=== PATIENT | female | born 1990 | race Caucasian/White ===

== ENCOUNTER 2017-10-12 09:25 | Emergency (ER) | payer MEDICAID, SELFPAY | END 2017-10-12 10:33 | disposition home or self-care (01) | PROVIDERS: Emergency Provider Nurse Practitioner Family; Family Provider Emergency Medicine; Visit Provider Nurse Practitioner Family | DX: J06.9 Acute upper respiratory infection, unspecified (principal) | CPT/HCPCS: 99201 ==

== ENCOUNTER 2017-11-07 00:14 | Emergency (ER) | payer MEDICAID, SELFPAY ==
[2017-11-07 00:21] VITALS: BP 135/88; PULSE 140; RESP 16; TEMP 37.4; O2SAT 97; BMI 28.1
[2017-11-07 00:39] LABS: Microscopic, Urine URINE MICROSCOPIC (MICROSCOPIC)
[2017-11-07 00:49] LABS: Appearance,Urine CLOUDY (Clear); Bilirubin,Urine Negative (Negative); Blood, Urine Negative (Negative); Color,Urine YELLOW (Yellow); Glucose,Urine (UA) Negative (Negative); Ketones,Urine TRACE (Negative); Leukocyte Esterase,Urine TRACE (Negative); Nitrate,Urine POSITIVE (Negative); Protein,Urine Negative (Negative); Specific Gravity, Urine 1.015 (1.005-1.030)
[2017-11-07 00:49] LABS: Basophils % 0.3 % (0.1-2.0); Eosinophils # 0.1 K/mm3 (0.0-0.4); Eosinophils % 1.6 % (0.1-12.0); Hematocrit 42.1 % (37.0-47.0); Hemoglobin 13.8 g/dL (12.2-16.2); Lymphocytes # 1.2 K/mm3 (0.7-4.5); Mean Corpuscular HGB Conc 32.8 g/dL (31.8-35.4); Mean Corpuscular Hemoglobin 28.4 pg (27.0-31.2); Mean Corpuscular Volume 86.7 fl (81-99); Mean Platelet Volume 8.6 fl (7.4-10.4); Monocytes # 0.4 K/mm3 (0.1-1.0); Monocytes % 5.7 % (1.7-9.3); Neutrophils # 5.7 K/mm3 (1.8-7.8); Neutrophils % 76.3 % (37.0-80.0); Platelet Count 209 K/mm3 (142-424); Red Blood Count 4.85 M/mm3 (4.20-5.40); Red Cell Distribution Width 13.1 % (11.5-17.5); White Blood Count 7.5 K/mm3 (4.8-10.8)
[2017-11-07 00:51] LABS: Urine Pregnancy, HCG Qual. Negative (Negative)
[2017-11-07 00:52] LABS: Bacteria,Urine 4+ /lpf
[2017-11-07 01:06] LABS: Alanine Aminotransferase 21 U/L (12-78); Albumin Level 4.5 gm/dL (3.4-5.0); Albumin/Globulin Ratio 1.2 (1.1-1.8); Alkaline Phosphatase 104 U/L (46-116); Anion Gap 10.5 mEq/L (5-15); Aspartate Amino Transferase 17 U/L (15-37); Bilirubin,Total 0.6 mg/dL (0.2-1.0); Blood Urea Nitrogen 8 mg/dL (7-18); Calcium 9.1 mg/dL (8.5-10.1); Carbon Dioxide 27 mmol/L (21.0-32.0); Chloride 103 mmol/L (98-107); Creatinine Clearance Estimated 111 mL/min (0-300); Creatinine,Serum 0.97 mg/dL (0.55-1.02); Estimated Glomerular Filt Rate 68 ml/min (>60); GFR (African American) 83 ML/MIN (>60); Globulin 3.8 gm/dl (1.3-3.2); Glucose 98 mg/dL (74-106); Potassium 3.5 mmoL/L (3.5-5.1); Sodium 137 mmol/L (136-145); Total Protein,Serum 8.3 gm/dL (6.4-8.2)
[2017-11-07 01:13] LABS: Strep Scrn Group A (Rapid) Negative (Negative)
--- NOTE | 2017-11-07 01:57 | HMH.EDHA ---
ED Disposition Clinical Impression: Headache Qualifiers: Headache type: unspecified Headache chronicity pattern: acute headache Intractability: not intractable Qualified Code(s): R51 - Headache Sinusitis Qualifiers: Sinusitis location: unspecified location Chronicity: acute Recurrence: not specified as recurrent Qualified Code(s): J01.90 - Acute sinusitis, unspecified Disposition: Home, Self-Care Condition on Discharge: Good Instructions: DI for Headache Additional Instructions: use meds and call pcp for follow up Prescriptions: cephALEXin [Keflex 500mg Cap] 500 mg PO TID #30 cap Referrals: Vladislav Lopez MD [Primary Care Provider] - - Critical Care Critical Care Time: No Attestation: On 11/07/17, the high probability of a clinically significant, sudden or life threatening deterioration of the following system(s) required my full and direct attention, intervention and personal management. The time I documented below is in addition to time spent performing reported procedures but includes the following listed in this critical care notation. Medical Decision Making - Medical Records Medical records reviewed: Yes: I reviewed the patient's medical records. Vital Signs: 11/07/17 00:21 Temperature 99.4 F Temperature Source Oral Pulse Rate [Brachial] 140 H Respiratory Rate 16 Blood Pressure [Right Arm] 135/88 Blood Pressure Mean [Right Arm] 103 Blood Pressure Source [Right Arm] Automatic Cuff Blood Pressure Position [Right Arm] Sitting 02 Sat by Pulse Oximetry 97 Oxygen Delivery Method Room Air - Lab Data Lab results reviewed: Yes: I reviewed the patient's lab results. Lab Results 11/07/17 00:37: Urine Color Yellow, Urine Appearance Cloudy, Urine pH 8.0, Ur Specific [place] 1.015, Urine Protein Negative, Urine Glucose (UA) Negative, Urine Ketones Trace, Urine Blood Negative, Urine Nitrate Positive, Urine Bilirubin Negative, Urine Urobilinogen 1.0, Ur Leukocyte Esterase Trace, Urine WBC 5-10, Ur Squamous Epith Cells 3-5, Urine Bacteria 4+ 11/07/17 00:37: Urine HCG, Qual Negative, Influenza Type A Ag Negative, Influenza Type B Ag Negative, Group A Strep Rapid Negative 11/07/17 00:40: WBC 7.5, RBC 4.85, Hgb 13.8, Hct 42.1, MCV 86.7, MCH 28.4, MCHC 32.8, RDW 13.1, Plt Count 209, MPV 8.6, Neut % (Auto) 76.3, Lymph % (Auto) 16.0, [place] % (Auto) 5.7, Eos % (Auto) 1.6, Baso % (Auto) 0.3, Neut # (Auto) 5.7, Lymph # (Auto) 1.2, [place] # (Auto) 0.4, Eos # (Auto) 0.1, Baso # (Auto) 0.0 11/07/17 00:40: Sodium 137, Potassium 3.5, Chloride 103, Carbon Dioxide 27, Anion Gap 10.5, BUN 8, Creatinine 0.97, Estimated Creat Clear 111, Estimated GFR 68, Est GFR ( Amer) 83, Glucose 98, Calcium 9.1, Total Bilirubin 0.6, AST 17, ALT 21, Alkaline Phosphatase 104, Total Protein 8.3 H, Albumin 4.5, Globulin 3.8 H, Albumin/Globulin Ratio 1.2 Result diagrams: 11/07/17 00:40 11/07/17 00:40 Orders (Tests/Meds): ED MEDICATIONS Discontinued Medications Generic Name Dose Route Start Last Admin Trade Name Hi PRN Reason Stop Dose Admin Acetaminophen 650 mg 11/07/17 01:11 11/07/17 01:13 Acetaminophen 325mg Tab PO 11/07/17 01:12 650 mg ONCE ONE Administration Ceftriaxone Sodium 1 gm/ 50 mls @ 100 mls/hr 11/07/17 02:06 11/07/17 02:28 Sodium Chloride IV 11/07/17 02:35 100 mls/hr ONCE ONE Administration Ketorolac Tromethamine 30 mg 11/07/17 02:05 11/07/17 02:28 Toradol 30mg/Ml Vial IV 11/07/17 02:06 30 mg ONCE ONE Administration Lactated Ringer's 0 ml 11/07/17 01:09 11/07/17 01:10 Lactated Ringer's 1000 Ml Bag IV 11/07/17 01:10 1,000 ml BOLUS ONE Administration ORDERS Category Date Time Status Strep Screen Confirmation Stat Micro 11/07/17 00:37 Received Urine Culture Stat Micro 11/07/17 00:37 Received - Wilder Inquiry Pt receiving controlled substance: No Headache HPI - General Chief Complaint: Headache Stated Complaint: Migraine,cough,aching,sore throat
--- NOTE | 2017-11-07 02:01 | ED_ITS ---
ED Disposition Clinical Impression: Headache Qualifiers: Headache type: unspecified Headache chronicity pattern: acute headache Intractability: not intractable Qualified Code(s): R51 - Headache Sinusitis Qualifiers: Sinusitis location: unspecified location Chronicity: acute Recurrence: not specified as recurrent Qualified Code(s): J01.90 - Acute sinusitis, unspecified Disposition: Home, Self-Care Condition on Discharge: Good Instructions: DI for Headache Additional Instructions: use meds and call pcp for follow up Prescriptions: cephALEXin [Keflex 500mg Cap] 500 mg PO TID #30 cap Referrals: Vladislav Lopez MD [Primary Care Provider] - - Critical Care Critical Care Time: No Attestation: On 11/07/17, the high probability of a clinically significant, sudden or life threatening deterioration of the following system(s) required my full and direct attention, intervention and personal management. The time I documented below is in addition to time spent performing reported procedures but includes the following listed in this critical care notation. Medical Decision Making - Medical Records Medical records reviewed: Yes: I reviewed the patient's medical records. Vital Signs: 11/07/17 00:21 Temperature 99.4 F Temperature Source Oral Pulse Rate [Brachial] 140 H Respiratory Rate 16 Blood Pressure [Right Arm] 135/88 Blood Pressure Mean [Right Arm] 103 Blood Pressure Source [Right Arm] Automatic Cuff Blood Pressure Position [Right Arm] Sitting 02 Sat by Pulse Oximetry 97 Oxygen Delivery Method Room Air - Lab Data Lab results reviewed: Yes: I reviewed the patient's lab results. Lab Results 11/07/17 00:37: Urine Color Yellow, Urine Appearance Cloudy, Urine pH 8.0, Ur Specific [place] 1.015, Urine Protein Negative, Urine Glucose (UA) Negative, Urine Ketones Trace, Urine Blood Negative, Urine Nitrate Positive, Urine Bilirubin Negative, Urine Urobilinogen 1.0, Ur Leukocyte Esterase Trace, Urine WBC 5-10, Ur Squamous Epith Cells 3-5, Urine Bacteria 4+ 11/07/17 00:37: Urine HCG, Qual Negative, Influenza Type A Ag Negative, Influenza Type B Ag Negative, Group A Strep Rapid Negative 11/07/17 00:40: WBC 7.5, RBC 4.85, Hgb 13.8, Hct 42.1, MCV 86.7, MCH 28.4, MCHC 32.8, RDW 13.1, Plt Count 209, MPV 8.6, Neut % (Auto) 76.3, Lymph % (Auto) 16.0 , [place] % (Auto) 5.7, Eos % (Auto) 1.6, Baso % (Auto) 0.3, Neut # (Auto) 5.7, Lymph # (Auto) 1.2, [place] # (Auto) 0.4, Eos # (Auto) 0.1, Baso # (Auto) 0.0 11/07/17 00:40: Sodium 137, Potassium 3.5, Chloride 103, Carbon Dioxide 27, Anion Gap 10.5, BUN 8, Creatinine 0.97, Estimated Creat Clear 111, Estimated GFR 68, Est GFR ( Amer) 83, Glucose 98, Calcium 9.1, Total Bilirubin 0.6 , AST 17, ALT 21, Alkaline Phosphatase 104, Total Protein 8.3 H, Albumin 4.5, Globulin 3.8 H, Albumin/Globulin Ratio 1.2 Result diagrams: 11/07/17 00:40 11/07/17 00:40 Orders (Tests/Meds): ED MEDICATIONS Discontinued Medications Generic Name Dose Route Start Last Admin Trade Name Raghuq PRN Reason Stop Dose Admin Acetaminophen 650 mg 11/07/17 01:11 11/07/17 01:13 Acetaminophen 325mg Tab PO 11/07/17 01:12 650 mg ONCE ONE Administration Ceftriaxone Sodium 1 gm/ 50 mls @ 100 mls/hr 11/07/17 02:06 11/07/17 02:28 Sodium Chloride IV 11/07/17 02:35 100 mls/hr ONCE ONE Administration Ketorolac Tromethamine 30 mg 11/07/17 02:05 11/07/17 02:28
== END 2017-11-07 03:11 | disposition home or self-care (01) ==
PROVIDERS: Emergency Provider Emergency Medicine; Family Provider Emergency Medicine; PCP Emergency Medicine
DX: R51 Headache (principal); J32.9 Chronic sinusitis, unspecified
CPT/HCPCS: 80053; 81001; 81025; 85025; 87086; 87088; 87275; 87276; 87430; 96365; 96374; 96375; 99283

== ENCOUNTER 2018-01-08 05:00 | Emergency (ER) | payer MEDICAID, SELFPAY ==
[2018-01-08 05:13] VITALS: BP 133/86; PULSE 100; RESP 16; TEMP 36.6; O2SAT 99; BMI 28.0
[2018-01-08 06:01] LABS: Microscopic, Urine URINE MICROSCOPIC (MICROSCOPIC)
[2018-01-08 06:04] LABS: Basophils % 0.3 % (0.1-2.0); Eosinophils # 0.1 K/mm3 (0.0-0.4); Eosinophils % 1.9 % (0.1-12.0); Hematocrit 41.5 % (37.0-47.0); Hemoglobin 13.9 g/dL (12.2-16.2); Lymphocytes # 2.3 K/mm3 (0.7-4.5); Lymphocytes % 34.6 K/mm3 (10-50); Mean Corpuscular HGB Conc 33.4 g/dL (31.8-35.4); Mean Corpuscular Hemoglobin 28.9 pg (27.0-31.2); Mean Corpuscular Volume 86.4 fl (81-99); Mean Platelet Volume 8.7 fl (7.4-10.4); Monocytes # 0.3 K/mm3 (0.1-1.0); Monocytes % 4.8 % (1.7-9.3); Neutrophils # 3.9 K/mm3 (1.8-7.8); Neutrophils % 58.4 % (37.0-80.0); Platelet Count 206 K/mm3 (142-424); Red Cell Distribution Width 12.9 % (11.5-17.5); White Blood Count 6.7 K/mm3 (4.8-10.8)
--- NOTE | 2018-01-08 06:08 | HMH.EDGENADL ---
ED Disposition Clinical Impression: Migraine Qualifiers: Migraine type: unspecified Status migrainosus presence: with status migrainosus Intractability: not intractable Qualified Code(s): G43.901 - Migraine, unspecified, not intractable, with status migrainosus Disposition: Home, Self-Care Condition on Discharge: Good Instructions: DI for Migraine Additional Instructions: Additional instructions for HEADACHE: See your physician as soon as possible for further evaluation. Return immediately if worsening headache, vomiting, problems with vision or speech, fever, numbness or weakness of the extremities, neck pain or stiffness. Referrals: Vladislav Lopez MD [Primary Care Provider] - Forms: Work/School Release - Critical Care Critical Care Time: No Attestation: On 01/08/18, the high probability of a clinically significant, sudden or life threatening deterioration of the following system(s) required my full and direct attention, intervention and personal management. The time I documented below is in addition to time spent performing reported procedures but includes the following listed in this critical care notation. Medical Decision Making - Wilder Inquiry Pt receiving controlled substance: No Vital Signs: 01/08/18 05:13 Temperature 97.9 F Temperature Source Oral Pulse Rate [Right Radial] 100 H Respiratory Rate 16 Blood Pressure [Right Arm] 133/86 Blood Pressure Mean [Right Arm] 101 Blood Pressure Source [Right Arm] Automatic Cuff Blood Pressure Position [Right Arm] Sitting 02 Sat by Pulse Oximetry 99 Oxygen Delivery Method Room Air - Lab Data Lab Results 01/08/18 05:39: WBC 6.7, RBC 4.80, Hgb 13.9, Hct 41.5, MCV 86.4, MCH 28.9, MCHC 33.4, RDW 12.9, Plt Count 206, MPV 8.7, Neut % (Auto) 58.4, Lymph % (Auto) 34.6, [place] % (Auto) 4.8, Eos % (Auto) 1.9, Baso % (Auto) 0.3, Neut # (Auto) 3.9, Lymph # (Auto) 2.3, [place] # (Auto) 0.3, Eos # (Auto) 0.1, Baso # (Auto) 0.0 Result diagrams: 01/08/18 05:39 Orders (Tests/Meds): ED MEDICATIONS Generic Name Dose Route Start Last Admin Trade Name Freq PRN Reason Stop Dose Admin Sodium Chloride 1,000 mls @ 999 mls/hr 01/08/18 05:30 01/08/18 05:40 Sod Chlor 0.9% 1000ml Bag IV 01/08/18 06:30 999 mls/hr .[id number] PRITI Administration Discontinued Medications Generic Name Dose Route Start Last Admin Trade Name Hi PRN Reason Stop Dose Admin Ketorolac Tromethamine 30 mg 01/08/18 05:26 01/08/18 05:39 Toradol 30mg/Ml Vial IV 01/08/18 05:27 30 mg ONCE ONE Administration Ondansetron HCl 4 mg 01/08/18 05:26 01/08/18 05:40 Zofran 4mg/2ml Vial IV 01/08/18 05:27 4 mg ONCE ONE Administration ORDERS Category Date Time Status Comprehensive Metabolic Panel Stat Lab 01/08/18 05:39 Received Urinalysis and Microscopic Stat Lab 01/08/18 05:20 Received Urine , HCG Qual Stat Lab 01/08/18 05:20 Received Medical Decision Narrative: Patient states she is markedly improved after Toradol, Zofran, and fluids. She wishes to be discharged. General Adult HPI - General Chief complaint: Headache Stated complaint: Migraine,Body aches Time Seen by Provider: 01/08/18 05:50 Mode of Arrival: Ambulatory Limitations: No Limitations Description of Symptoms (Recalled from ER Triage Doc. by RN): Pt. reports Migraine that started at 10pm yesterday - History of Present Illness HPI narrative: Patient complains of a migraine that began last evening. She took Excedrin Migraine at about 1 AM without relief. She says that she has a diagnosis of migraines, had been on Topamax in the past, but is not currently on any medicines for migraine. She has been to the emergency room several times for migraines and says usually an injection of Toradol helps. She has had nausea. Photophobia. - Related Data Home Medications Medication Instructions Recorded Confirmed Phentermine HCl 37.5 mg PO QDAY 11/07/17 01/08/18 Allergies
[2018-01-08 06:19] VITALS: BP 106/68; PULSE 82; RESP 20; TEMP 37; O2SAT 100
[2018-01-08 06:21] LABS: Appearance,Urine CLEAR (Clear); Bilirubin,Urine Negative (Negative); Blood, Urine Negative (Negative); Color,Urine YELLOW (Yellow); Glucose,Urine (UA) Negative (Negative); Ketones,Urine Negative (Negative); Leukocyte Esterase,Urine 1+ (Negative); Nitrate,Urine POSITIVE (Negative); Protein,Urine Negative (Negative); Specific Gravity, Urine 1.025 (1.005-1.030); Urobilinogen,Urine 0.2 EU/dl (0.2)
[2018-01-08 06:24] LABS: Urine Pregnancy, HCG Qual. Negative (Negative)
[2018-01-08 06:27] LABS: Alanine Aminotransferase 21 U/L (12-78); Alkaline Phosphatase 88 U/L (46-116); Aspartate Amino Transferase 14 U/L (15-37); Bilirubin,Total 0.9 mg/dL (0.2-1.0); Blood Urea Nitrogen 8 mg/dL (7-18); Carbon Dioxide 27 mmol/L (21.0-32.0); Chloride 105 mmol/L (98-107); Creatinine Clearance Estimated 123 mL/min (0-300); Creatinine,Serum 0.87 mg/dL (0.55-1.02); Estimated Glomerular Filt Rate 78 ml/min (>60); GFR (African American) 94 ML/MIN (>60); Glucose 109 mg/dL (74-106); Sodium 141 mmol/L (136-145)
[2018-01-08 06:50] LABS: Bacteria,Urine 3+ /lpf; Squamous Epithelial Cell,Urine TNTC #/hpf (0-5); WBC,Urine 20-50 #/hpf (0-3)
== END 2018-01-08 06:21 | disposition home or self-care (01) ==
PROVIDERS: Emergency Provider Emergency Medicine; Family Provider Emergency Medicine; PCP Emergency Medicine
DX: G43.901 Migraine, unspecified, not intractable, with status migrainosus (principal); Z90.49 Acquired absence of other specified parts of digestive tract
CPT/HCPCS: 80053; 81001; 81025; 85025; 87086; 96365; 96375; 99282; J2405

== ENCOUNTER 2018-01-13 14:35 | Emergency (ER) | payer MEDICAID, SELFPAY ==
[2018-01-13 14:45] VITALS: BP 127/79; PULSE 107; RESP 16; TEMP 37.1; O2SAT 95; BMI 28.0
--- NOTE | 2018-01-13 15:01 | HMH.EDDENT ---
ED Disposition Clinical Impression: Gingivitis Disposition: Home, Self-Care Condition on Discharge: Good Additional Instructions: Naproxen, dental balls infused with viscous Lidocaine: one ball to affected area every few hours; Rx Amoxicillin, contact Dr. Crabtree regarding ER visit. Prescriptions: Amoxicillin [Amoxicillin 500mg Cap] 500 mg PO TID #30 cap Naproxen [EC-Naprosyn] 500 mg PO BID PRN #20 tablet.dr LOWERY Reason: pain Referrals: Vladislav Lopez MD [Primary Care Provider] - Forms: Work/School Release - Critical Care Critical Care Time: No Attestation: On 01/13/18, the high probability of a clinically significant, sudden or life threatening deterioration of the following system(s) required my full and direct attention, intervention and personal management. The time I documented below is in addition to time spent performing reported procedures but includes the following listed in this critical care notation. Medical Decision Making - Wilder Inquiry Pt receiving controlled substance: No Vital Signs: 01/13/18 14:45 Temperature 98.8 F Temperature Source Temporal Artery Scan Pulse Rate [Right Radial] 107 H Respiratory Rate 16 Blood Pressure [Right Arm] 127/79 Blood Pressure Mean [Right Arm] 95 Blood Pressure Source [Right Arm] Automatic Cuff Blood Pressure Position [Right Arm] Sitting 02 Sat by Pulse Oximetry 95 Oxygen Delivery Method Room Air Orders (Tests/Meds): ED MEDICATIONS Discontinued Medications Generic Name Dose Route Start Last Admin Trade Name Freq PRN Reason Stop Dose Admin Ketorolac Tromethamine 60 mg 01/13/18 14:51 01/13/18 14:58 Toradol 60mg/2ml Vial IM 01/13/18 14:52 60 mg ONCE ONE Administration Lidocaine HCl 15 ml 01/13/18 14:52 01/13/18 14:57 Lidocaine 2% Viscous Solution 15ml Udc PO 01/13/18 14:53 15 ml ONCE ONE Administration Dental HPI - General Chief complaint: Dental/Oral Stated complaint: dental pain Time Seen by Provider: 01/13/18 15:01 Mode of Arrival: Ambulatory Source of Information: Patient Limitations: No Limitations Description of Symptoms (Recalled from ER Triage Doc. by RN): TOOTH PULLED SIX DAYS AGO. SEVERE DENTAL PAIN ON LEFT UPPER TOOTH/HOLE. - History of Present Illness HPI Narrative: Dental extraction per Dr. Crabtree six days ago; c/o pain, has f/u in five days with dentist. No fever or vomiting; not currently on any antibiotics; reports gingival swelling and pain the last few days. Location: Tooth # (11) Onset (ago): day(s) Duration: constant Severity: moderate Relieving factors: nothing Exacerbating factors: chewing Treatment prior to arrival: recent dentist visit - Related Data Home Medications Medication Instructions Recorded Confirmed Phentermine HCl 37.5 mg PO QDAY 11/07/17 01/13/18 Previous Rx's Medication Instructions Recorded Amoxicillin [Amoxicillin 500mg 500 mg PO TID #30 cap 01/13/18 Cap] Naproxen [EC-Naprosyn] 500 mg PO BID PRN #20 tablet. 01/13/18 Allergies Allergy/AdvReac Type Severity Reaction Status Date / Time No Known Allergies Allergy Verified 01/08/18 05:18 [facility] History I have reviewed the patient's past medical history: Yes - Social History Alcohol Intake: never - Psychiatric History Expresses thoughts of harming self/others: None Suicide Plan Description: No Plan ROS Obtained: Yes All systems reviewed & no additional complaints Physical Exam - General General appearance: alert, in no apparent distress - Head Head exam: atraumatic, normocephalic, normal inspection - Eye Eye exam: Present: normal appearance, PERRL, EOMI - ENT ENT exam: Present: normal oropharynx, other (gingival tenderness where #11 removed; no pus or odor; no erythema or swelling to cheek) - Neck Neck exam: Present: normal inspection, full ROM, trachea midline. Absent: meningismus, lymphadenopathy - Chest Chest inspection: Present: normal inspection, symmet
--- NOTE | 2018-01-13 15:07 | ED_ITS ---
ED Disposition Clinical Impression: Gingivitis Disposition: Home, Self-Care Condition on Discharge: Good Additional Instructions: Naproxen, dental balls infused with viscous Lidocaine: one ball to affected area every few hours; Rx Amoxicillin, contact Dr. Crabtree regarding ER visit. Prescriptions: Amoxicillin [Amoxicillin 500mg Cap] 500 mg PO TID #30 cap Naproxen [EC-Naprosyn] 500 mg PO BID PRN #20 tablet.dr LOWERY Reason: pain Referrals: Vladislav Lopez MD [Primary Care Provider] - Forms: Work/School Release - Critical Care Critical Care Time: No Attestation: On 01/13/18, the high probability of a clinically significant, sudden or life threatening deterioration of the following system(s) required my full and direct attention, intervention and personal management. The time I documented below is in addition to time spent performing reported procedures but includes the following listed in this critical care notation. Medical Decision Making - Wilder Inquiry Pt receiving controlled substance: No Vital Signs: 01/13/18 14:45 Temperature 98.8 F Temperature Source Temporal Artery Scan Pulse Rate [Right Radial] 107 H Respiratory Rate 16 Blood Pressure [Right Arm] 127/79 Blood Pressure Mean [Right Arm] 95 Blood Pressure Source [Right Arm] Automatic Cuff Blood Pressure Position [Right Arm] Sitting 02 Sat by Pulse Oximetry 95 Oxygen Delivery Method Room Air Orders (Tests/Meds): ED MEDICATIONS Discontinued Medications Generic Name Dose Route Start Last Admin Trade Name Freq PRN Reason Stop Dose Admin Ketorolac Tromethamine 60 mg 01/13/18 14:51 01/13/18 14:58 Toradol 60mg/2ml Vial IM 01/13/18 14:52 60 mg ONCE ONE Administration Lidocaine HCl 15 ml 01/13/18 14:52 01/13/18 14:57 Lidocaine 2% Viscous Solution 15ml Udc PO 01/13/18 14:53 15 ml ONCE ONE Administration Dental HPI - General Chief complaint: Dental/Oral Stated complaint: dental pain Time Seen by Provider: 01/13/18 15:01 Mode of Arrival: Ambulatory Source of Information: Patient Limitations: No Limitations Description of Symptoms (Recalled from ER Triage Doc. by RN): TOOTH PULLED SIX DAYS AGO. SEVERE DENTAL PAIN ON LEFT UPPER TOOTH/HOLE. - History of Present Illness HPI Narrative: Dental extraction per Dr. Crabtree six days ago; c/o pain, has f/u in five days with dentist. No fever or vomiting; not currently on any antibiotics; reports gingival swelling and pain the last few days. Location: Tooth # (11) Onset (ago): day(s) Duration: constant Severity: moderate Relieving factors: nothing Exacerbating factors: chewing Treatment prior to arrival: recent dentist visit - Related Data Home Medications Medication Instructions Recorded Confirmed Phentermine HCl 37.5 mg PO QDAY 11/07/17 01/13/18 Previous Rx's Medication Instructions Recorded Amoxicillin [Amoxicillin 500mg 500 mg PO TID #30 cap 01/13/18 Cap] Naproxen [EC-Naprosyn] 500 mg PO BID PRN #20 tablet. 01/13/18 Allergies Allergy/AdvReac Type Severity Reaction Status Date / Time No Known Allergies Allergy Verified 01/08/18 05:18 [facility] History I have reviewed the patient's past medical history: Yes - Social Histo
[2018-01-13 15:35] VITALS: BP 149/98; PULSE 67; RESP 18; TEMP 37.1
== END 2018-01-13 15:36 | disposition home or self-care (01) ==
PROVIDERS: Emergency Provider Emergency Medicine; Family Provider Emergency Medicine; PCP Emergency Medicine
DX: K05.10 Chronic gingivitis, plaque induced (principal)
CPT/HCPCS: 96372; 99281

== ENCOUNTER 2025-04-26 11:11 | Outpatient (CLI) | payer MEDICAID, SELFPAY ==
--- NOTE | 2025-04-26 11:15 | XR_ITS ---
FINAL REPORT CLINICAL HISTORY: Cough, back pain FINDINGS: Cardiac silhouette is of normal size. Lungs are clear. No effusion is seen. IMPRESSION: 1. No evidence of acute infiltrate. Authenticated and ERN
--- OUTSIDE RECORDS SUMMARY | 2025-04-26 11:18 | XMS_ITS | Clinical Summary ---
Author Organization [facility] Address [address] [place] [address] Phone Care Team Providers Care Bleacher Sulfite Pulp Name Role Phone Genet Torri Monreal MD Primary Care Provider Allergies No known active allergies Medications acetaminophen 325 mg Oral Tab Take 650 mg by mouth every 4 hours as needed for Pain. Active dextroamphetamin e-amphetamine (ADDERALL XR) 25 mg Oral Capsule, Sust. Release 24 hr Take 25 mg by mouth daily. 07/12/2023 Active lidocaine (LIDODERM) 5 % Top Adhesive Patch, Medicated Place 1 Patch onto the skin daily. Apply for 12 hours, remove for 12 hours, then apply new patch 30 Patch 01/26/2024 Active Active Problems Problem Noted Date Diagnosed Date Pyelonephritis affecting in second tri mester 06/07/2018 History of delivery, currently in second trimester 05/30/2018 History of pre-eclampsia in prior , currently in second trimester 05/30/2018 Previous delivery affecting , antepartum 05/30/2018 Rh negative state in antepartum period, second t rimester 05/30/2018 24 weeks gestation of 04/08/2018 Personal history of kidney stones 04/08/2018 Supervision of high risk in first trim be 08/16/2015 Overview (08/16/2015): Hx/o delivery x 2. delivery x 2. Rh negative. Desires Nissa, Quad screen. Repeat delivery. Migraines 02/19/2015 Bipolar disorder, unspecified ADHD (attention deficit hyperactivity disorder) Allergic rhinitis, cause unspecified Resolved Problems Problem Noted Date Diagnosed Date Resolved Date Pelvic cramping in antepartum period 05/30/2018 06/07/2018 Bacterial vaginitis 05/30/2018 06/07/20 18 Abdominal cramping affecting 04/08/2018 05/30/2018 Chlamydia infection affectin g in first trimester 09/12/2015 05/30/2018 Cholecystitis 04/01/2014 02/19/2015 Fluid overload 01/30/2014 01/22/2015 Hypertension in , p reeclampsia, severe, antepartum 01/28/2014 02/19/2015 FUO (fever of unknown origin) 01/27/2014 02/19/2015 High-risk 01/23/2014 02/20/20 15 Overview (01/23/2014): L=11 week U/S PNL wnl CF neg Anatomy U/S wnl GCT abn --> 3hr wnl Mild preeclampsia 01/11/2014 02/19/2015 Overview (01/23/2014): Labs nml 01/11 24 hr urine 346mg (01/12) increased from baseline Start testing and weekly visits / labs 34 week U/S nl growth, CATRACHITO 25cm Abnormal O'Linares glucose challenge test, antepartum 12/22/2013 01/23/2014 Overview (12/28/2013): GCT:154 GTT:NML Abdominal pain in , antepartum 12/19/2013 01/23/2014 Hx of preeclampsia, prior pr egnancy, currently 12/12/2013 02/19/2015 Abnormal quad screen 12/04/2013 015 Overview (12/12/2013): Was drawn @ 26 weeks in error, see report - states AFP high even for 26 wks, pt to see GC, had normal sono Rh negative status during 10/03/2013 02/19/2015 Overview (01/23/2014): S/p RhoGam @28wk Previous section 10/03/2013 Overview (01/26/2014): PTB @32wks with first-preeclampsia FTP C/S @38wks with 2nd-IOL Preeclampsia History of pre-term labor 10/03/2013 Overview (10/03/2013): Hx of PTD @32 wks preeclampsia Short interval between pregn ancies complicating , antepartum 09/08/201302/19 Overview (12/22/2013): 20 wk vane:NML Failure to progress in labor 03/22/2013 10/03/2013 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 Immunizations Immunization Administration Dates Next Due PPD Test 12/27/2015 Rho (D) Immune Globulin 03/20/2018,09/18,12/27/2013,03/23/2013,01/26/20 13,11/21/2012,08/12/2012 Tdap 03/22/2013 Surgical History Surgery Date Site/Laterality Comments TONSILLECTOMY TYMPANOSTOMY TUBE PLACEMENT KIDNEY STONE SURGERY SECTION 03/22/2013 Abdomen/Bilateral Surgeon: Bradley Scott MD; Location: [facility]; Service: PELVIC LAPAROSCOPY SECTION 01/28/2014 primary section low transverse uterine incision @ 1516 viable girl @ 1516 Apgars 8/9; Surgeon: Sandor Gross MD; Location: [facility]; Service: Gynecology CHOLECYSTECTOMY, LAPAROSCOPIC 04/01/2014 N/A LAPAROSCOPIC CHOLECYSTECTOMY; Surgeon: Everette Benavides MD; Location: [facility]; Service: General Medical History Medical History Date Comments Migraine Anemia on iron Obstructive tonsil hospitalized X4 for enlarged lingual tonsils Hx MRSA infection H/O pre-eclampsia in prior p regnancy, currently 2007 2012 with Hypertension 2007 with Chlamydia Rh negative state in antepartum period delivery 32 weeks Heartburn with Urinary tract infection last one in 2-13' Cholecystitis 04/01/2014 Chlamydia infection affectin g in first trimester 09/12/2015 Bipolar 1 disorder (HCC) Bacterial vaginitis 05/30/2018 Family History Medical History Relation Name Comments Arthritis Father High Blood Pressure Mother Miscarriages / Stillbirths Mother Asthma Neg Hx Defects Neg Hx Bleeding Prob Neg Hx Breast Cancer Neg Hx Cancer Neg Hx Chorea Neg Hx Clotting Disorder Neg Hx Colon Cancer Neg Hx Cystic Fibrosis Neg Hx Diabetes Neg Hx Down Syndrome Neg Hx Eclampsia Neg Hx Heart Defect Neg Hx Heart Failure Neg Hx High Cholesterol Neg Hx Hypertension Neg Hx Mental Retardation Neg Hx Migraines Neg Hx Osteoarthritis Neg Hx Ovarian Cancer Neg Hx PKU Neg Hx Labor Neg Hx Rashes/Skin Problems Neg Hx Rheum Arthritis Neg Hx Seizures Neg Hx Sickle Cell Anemia Neg Hx Spont Abortions Neg Hx Stroke Neg Hx Thyroid Disease Neg Hx Relation Name Status Comments Father Alive Mother Alive Social History Tobacco Use Types Packs/Day Years Used Date Smoking Tobacco: Never Smokeless Tobacco: Never Tobacco Cessation:Counseling Given: Yes Alcohol Use Standard Drinks/Week Comments No 0 (1 standard drink = 0.6 oz pur e alcohol) Sexually Active Control Partners Comments Yes Male Comments No Sex and Gender Information Value Date Recorded Sex Assigned at Not on file Legal Sex Female 3:40 AM EDT Gender Identity Not on file Sexual Orientation Not on file Obstetrics History Para Term AB IAB SAB Ectopic Multiple Livin g Live Births 5 3 1 2 3 3 Date Outcome GA Total Labor Labor/2nd/3rd Weight Sex Type Anes PTL Malou A1 A5 Name Clin 2007 32w 0d 4 lb (1.814 kg) F Vag-S pont Livin g Comments:pre-eclampsia 2012 Term 38w 0d 6 lb 15.8 oz (3.17 kg) F CS-LT ranv Epidur al N Livin g 7 9 KENNY R,KRYSTYNA JOSEPH BABY A Duarte Scott MD Delivery Location:[facility] 2013 35w 6d 6 lb 5.4 oz (2.875 kg) F PURCHASING ANALYST Spinal N Livin g 8 9 KENNY R,KRYSTYNA OPAL GIRL A Sandor Avila MD Delivery Location:[facility] Comments:none observed Last Filed Vital Signs Vital Sign Reading Time Taken Comments Blood Pressure 119/80 01/26/2024 5:24 PM EDT Pulse 87 01/26/2024 5:18 PM EDT Temperature 36.8 C (98.3 F) 01/26/2024 5:24 PM EDT Respiratory Rate 18 01/26/2024 5:18 PM EDT Oxygen Saturation 100% 01/26/2024 5:18 PM EDT Inhaled Oxygen Concentration - - Weight 68 kg (150 lb) 01/26/2024 5:24 PM EDT Height 167.6 cm (5' 6 ) 01/26/2024 5:24 PM EDT Body Mass Index 24.21 01/26/2024 5:24 PM EDT Plan of Treatment Health Maintenance Due Date Last Done Comments Annual Wellness Exam 02/27/1992 Hepatitis B Vaccine (1 of 3 - 19+ 3-dose series) 02/27/2008 Pap Smear 02/23/2018 02/23/2015, 09/06/2013, 09/13/2012 Cervical Cancer Screening 2019 HPV/Pap Cotest 2019 DTaP/TDaP/Td (2 - Td or Tdap) 03/22/2023 03/22/2013 COVID-19 Vaccine (2023-2 5 season) 2024 Influenza Vaccine (#1) 2025 , 10/10/2015 (Declined) Meningococcal B Vaccine Aged Out No l onger eligible based on patient's age to complete this topic Pneumococcal Vaccine 0-49 Aged Out No longer eligible based on patient's age to complete this topic Goals Goal Patient Goal Type Associated Problems Recent Progress Patient-Stated? Author Blood Pressure < 140/90 Blood Pressure 119/80( 024 5:24 PM EDT) No Ree Brink Ana Laura, Vikki Procedures Procedure Name Priority Date/Time Associated Diagnosis Comments MIXED LIVESTOCK FARMER CYTOLOGY REPORT Routine 02/23/2015 1 0:04 AM EDT from Last 3 Months or Most Recently Relevant to Health Maintenance Results * MIXED LIVESTOCK FARMER CYTOLOGY REPORT (02/23/2015 10:04 AM EDT) Woodyard Crane Operator Cytology Report PATIENT NAME:TELMA SOSA Woodyard Crane Operator Cytology Report Accession Number Collected Date/Time Received Date/Time [id number] 02/23/15 10:04 EDT 02/23/15 11:04 EDT GY Specimen Source Specimen Vag/Cerv/Endocx?: Vag/Cerv/Endocerv Statement of Adequacy Satisfactory for Evaluation. Transformation Zone Present. Diagnosis NEGATIVE FOR INTRAEPITHELIAL LESION OR MALIGNANCY. Comment The Pap Smear is a screening test that aids in the detection of cervical cancer and cancer precursors. Both false positive and false negative results can occur. The test should be used at regular intervals, and positive results should be confirmed before definitive therapy. Processed using the ThinPrep Occupational Therapy Director automated cytology screening device (Work[employer]ug). National Account Representative: ADOLFO TORIBIO 2015 Completed by: [place] Chaney (Electronically signed by) 02/27/[address] [facility] 02/23/2015 10:0 4 AM EDT us Michele Luo MD PATHOLOGY ORDERABLES Final Resu lt [facility] [address] [place] [address] from Last 3 Months or Most Recently Relevant to Health Maintenance Insurance [facility] AUTO ACCIDENT GENERIC on file Advance Directives For more information, please contact: [phone] * Full Code (Latest Code Status on File) Date Activated Date Inactivated Comments 06/09/2018 10:53 AM 06/10/2018 1:03 AM * Full Code Date Activated Date Inactivated Comments 04/01/2014 1:31 PM 04/01/2014 11:33 PM * Full Code Date Activated Date Inactivated Comments 01/28/2014 1:51 PM 01/28/2014 3:56 PM * Full Code Date Activated Date Inactivated Comments 03/21/2013 12:38 PM 03/24/2013 5:52 PM Care Teams Bleacher Sulfite Pulp Relationship Specialty Start Date End Date Torri De León MD [address] [place] [address] PCP - General Family Medicine 09/23/22
[2025-04-26 13:38] LABS: Coronavirus 19, PCR Not Detected (NotDetected); Influenza A, PCR Not Detected (NotDetected); Influenza B, PCR Not Detected (NotDetected)
== END 2025-04-26 23:59 | disposition home or self-care (01) ==
LOC: RAD 11:13
PROVIDERS: PCP Nurse Practitioner Family; Visit Provider Student in an Organized Health Care Education/Training Program
DX: M54.9 Dorsalgia, unspecified (principal); R05.9 Cough, unspecified; R06.2 Wheezing
CPT/HCPCS: 71046; 87631

== ENCOUNTER 2025-05-17 09:41 | Emergency (ER) | payer MEDICAID, SELFPAY ==
[2025-05-17 09:41] VITALS: BP 120/91; PULSE 116; RESP 18; TEMP 37.3; O2SAT 99; BMI 27.4
--- NOTE | 2025-05-17 09:45 | HMH.EDGENADL ---
Discharge Plan Disposition Patient Disposition: Home, Self-Care Condition: Fair Prescriptions Prescriptions: New amoxicillin-pot clavulanate 875-125 mg tablet 1 tab PO BID Qty: 14 0RF No Action dextroamphetamine-amphetamine 20 mg capsule,extended release 24hr 20 mg PO DAILY Patient Comments: TAKE 1 CAPSULE BY MOUTH ONCE DAILY bupropion HCl 300 mg tablet extended release 24 hr 300 mg PO DAILY Patient Comments: TAKE 1 TABLET BY MOUTH ONCE DAILY albuterol sulfate [Ventolin HFA] 90 mcg/actuation HFA aerosol inhaler 1 inh inhalation QID PRN (Reason: shortness of breath or wheezing) Qty: 6.7 0RF Referrals Follow up/Referrals: Chaya Sy APRN [Primary Care Provider, Medical] - See instructions Activity Restrictions/Add. Instructions Additional Instructions/Restrictions: Go immediately to the dentist. Return if you have any fevers or worsening pain despite medications at home. Clinical Impressions Clinical Impression: Pain, dental, Cellulitis Print Language Print Language: Cameroonian Discharge ED Provider: Kj Lopez General Adult HPI General Chief complaint: Dental/Oral Stated complaint: pain and swelling L side of face-jaw Time Seen by Provider: 05/17/25 09:43 History of Present Illness HPI narrative: Patient is a 35-year female with no significant past medical history presents today for dental pain. She reports that yesterday morning, began to have left mandibular molar pain. She is known that she has had a hole in that tooth for some time, but has not gotten it checked out. Yesterday she poured temporary filling in it from the [id number]. She denies any fevers, difficulty swallowing, difficulty breathing. She does report that the pain has been refractory to ibuprofen 800 mg and Tylenol at home. Related Data Home Medications ?Medication ?Instructions ?Recorded ?Confirmed bupropion HCl 300 mg 24 hr tablet, 300 mg PO DAILY 04/26/25 05/17/25 extended release dextroamphetamine-amphetamine ER 20 mg PO DAILY 04/26/25 05/17/25 20 mg 24hr capsule,extend release Previous Rx's ?Medication ?Instructions ?Recorded albuterol sulfate 90 mcg/actuation 1 inh inhalation QID PRN shortness 04/26/25 aerosol inhaler (Ventolin HFA) of breath or wheezing #6.7 grams amoxicillin 875 mg-potassium 1 tab PO BID #14 tabs 05/17/25 clavulanate 125 mg tablet Allergies Allergy/AdvReac Type Severity Reaction Status Date / Time No Known Allergies Allergy Verified 05/17/25 10:50 [facility] Disclaimer: The information contained in this section may have been updated after the patient was seen, as this information can be updated by other users. 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 Have you lived/traveled outside US in past 30 days?: No Contact w/someone who lives/traveled outside US past 30 days?: No Exposure to someone with infectious disease in past 14 days?: No Do you have a fever (greater than 100.4 F or 38 C)?: No Have you tested positive for COVID-19?: No Exposed to someone with COVID-19 in past 14 days?: No Do you have a sore throat?: No Do you have a cough?: No Do you have any weakness?: No Do you have any diarrhea?: No Are you experiencing any unusual bleeding?: No Do you have any muscle aches/pain?: No Do you have any abdominal pain?: No Are you experiencing loss of taste or smell?: No Other Medical History Have you received the Flu Vaccine for this season: No Have you received the Pneumonia Vaccine: No ROS Obtained: Yes All systems reviewed & no additional complaints except as documented Physical Exam General General appearance: alert and in no apparent distress Head Head exam: atraumatic and normocephalic Eye Eye exam: Present normal appearance ENT ENT exam: Present mucous membranes moist and other (Tender palpation and gingival irritation over the left mandibular molar. There is a periosteal reaction as well along the gingival margin, unclear if from the temporary tooth filling or otherwise) Neck Neck exam: Present full ROM and trachea midline Chest Chest inspection: Present symmetric chest wall rise Respiratory Respiratory exam: Absent respiratory distress or stridor Cardiovascular Cardiovascular exam: Present regular rate and normal rhythm Abdominal Exam Abdominal exam: Absent distention Extremities Exam Extremities exam: Present normal inspection Neurological Exam Neurological exam: Present alert and oriented X3 Psychiatric Psychiatric exam: Present normal mood Skin Skin exam: Present warm and dry Medical Decision Making Medical Records Screening: Per USPSTF and CDC recommendations, given the prevalence of disease in our region, it is our hospital?s policy to screen for HIV and viral Hepatitis for all patients aged 18 and over and those with ongoing risk factors. Wilder Inquiry Pt receiving controlled substance: No Vital Signs: 05/17/25 09:41 05/17/25 10:00 05/17/25 11:00 Temperature 99.1 F Temperature Source Oral Pulse Rate 106 H 91 H Pulse Rate [Radial] 116 H Respiratory Rate 18 Blood Pressure 135/87 Blood Pressure [Right Arm] 120/91 H Blood Pressure Mean [Right Arm] 100 Blood Pressure Source [Right Arm] Automatic Cuff Blood Pressure Position [Right Arm] Sitting 02 Sat by Pulse Oximetry 99 99 100 Oxygen Delivery Method Room Air Lab Data Lab Results 05/17/25 09:55: WBC 6.6, RBC 4.50, Hgb 12.4, Hct 38.6, MCV 85.8, MCH 27.6, MCHC 32.1, RDW 14.3, Plt Count 188, MPV 10.8 H, Neut % (Auto) 72.4, Lymph % (Auto) 17.7, [place] % (Auto) 7.3, Eos % (Auto) 2.0, Baso % (Auto) 0.3, Neut # (Auto) 4.8, Lymph # (Auto) 1.2, [place] # (Auto) 0.5, Eos # (Auto) 0.1, Baso # (Auto) 0.0, Sodium 134 L, Potassium 4.1, Chloride 101, Carbon Dioxide 28, Anion Gap 9.1, BUN 9, Creatinine 0.60, Estimated Creat Clear 158, Estimated GFR 113, Est GFR ( Amer) 137, Glucose 101 H, Calcium 9.8, Serum HCG, Qual Negative, HCV Ab LOU w/Rflx PCR Qn Negative 05/17/25 09:55 05/17/25 09:55 Orders (Tests/Meds): ED MEDICATIONS Discontinued Medications Generic Name Dose Route Start Last Admin Trade Name Freq PRN Reason Stop Dose Admin Hydromorphone HCl 0.5 mg 05/17/25 11:08 05/17/25 11:13 Hydromorphone 2mg/Ml Syringe IV 05/17/25 11:09 0.5 mg ONCE ONE Administration Lactated Ringer's 1,000 mls @ 999 mls/hr 05/17/25 09:49 05/17/25 10:01 Lactated Ringer's 1000 Ml Bag IV 05/17/25 10:49 999 mls/hr .Q1H1M ONE Administration Iopamidol 75 ml 05/17/25 10:36 05/17/25 10:36 Iopamidol-370 (76%);100ml Bottle IV 05/17/25 10:37 75 ml ONCE ONE Administration Morphine Sulfate 4 mg 05/17/25 09:49 05/17/25 10:02 Morphine 4mg/Ml Syringe IV 05/17/25 09:50 4 mg ONCE ONE Administration Ondansetron HCl 4 mg 05/17/25 09:49 05/17/25 10:02 Ondansetron 4mg/2ml Vial IV 05/17/25 09:50 4 mg ONCE ONE Administration ORDERS Category Date Time Status CT facial bones w con Stat Cat Scan 05/17/25 09:49 Completed Basic Metabolic Panel Stat Lab 05/17/25 09:55 Completed CBC w/Auto Diff [Complete Blood Count Auto Diff] Stat Lab 05/17/25 09:55 Completed HCG Qualitative, Serum Stat Lab 05/17/25 09:55 Completed HIV Combo Stat Lab 05/17/25 09:55 Received Hepatitis C Ab Qual. W/ RFX Stat Lab 05/17/25 09:55 Completed Medical Decision Narrative: Patient is a 35-year-old female with no significant past medical history presents today for dental pain. Left mandibular molar has pain and swelling. Applied temporary tooth filling which per my research online usually is made great of zinc oxide powder and calcium sulfate. She reports that she did not get any sleep last night worsening pain throughout and significant swelling, extending down into her neck. She is tender along the left mandibular area and into the neck, without crepitus no crepitus on the floor the mouth. Though, given the rate of swelling, and significant pain, with some decreased range of motion of the neck, we will proceed with CT face to further characterize the infection. Otherwise, on exam she is afebrile mildly tachycardic here, likely secondary to pain, normotensive. Warm and well-perfused with full pulses and brisk capillary refill CT face demonstrates mandibular cellulitis without abscess. Will treat with antibiotics outpatient. She has a dentist appointment in about an hour and a half, will discharge her there with stricter precautions. On reassessment of her bone mentions pain improved. Critical Care Critical Care Time Critical Care Time: No
--- NOTE | 2025-05-17 09:46 | PC.NURSE ---
dr sharma at bedside
--- NOTE | 2025-05-17 09:49 | CT_ITS ---
FINAL REPORT CLINICAL HISTORY: L mandibular ttp, swelling, c/f deep space infxn COMPARISON: None FINDINGS: CT SINUSES TECHNIQUE: Thin section axial CT with coronal and sagittal reconstructions were obtained after the administration of IV contrast. This study was performed with techniques to keep radiation doses as low as reasonably achievable, (ALARA). Individualized dose reduction techniques using automated exposure control or adjustment of mA and/or kV according to the patient's size were employed. Paranasal sinuses are clear. The salivary glands are normal. There is borderline left submandibular adenopathy. No evidence of tonsillar abscess. The larynx is unremarkable. The thyroid is normal. There is stranding along the left mandibular body compatible with cellulitis. No evidence of bony destruction. There is no soft tissue abscess. IMPRESSION: Left perimandibular cellulitis without abscess or obvious bone destruction. Mild left submandibular adenopathy considered benign reactive. Reviewed, Interpreted and Dictated by Alexandria Kilpatrick MD Transcribed by Ana Haider Authenticated and [facility]
[2025-05-17 10:00] VITALS: PULSE 106; O2SAT 99
[2025-05-17] MEDS: LACTATED RINGERS 1000ML 1,000 ML 999 ML IV (10:01)
[2025-05-17] MEDS: ONDANSETRON 4MG/2ML VIAL 4 MG IV (10:02)
[2025-05-17] MEDS: MORPHINE 4MG/ML SYRINGE 4 MG IV (10:02)
--- NOTE | 2025-05-17 10:09 | PC.NURSE ---
PT MEDICATED PER EMAR, CALL LIGHT WITHIN REACH. UPDATED ON PLAN OF CARE
[2025-05-17 10:10] LABS: Hematocrit 38.6 % (37.0-47.0); Hemoglobin 12.4 g/dL (12.2-16.2); Immature Granulocytes % 0.3 %; Mean Corpuscular HGB Conc 32.1 g/dL (31.8-35.4); Mean Corpuscular Hemoglobin 27.6 pg (27.0-31.2); Mean Corpuscular Volume 85.8 fl (81-99); Nucleated Red Blood Cells % 0 %; Platelet Count 188 K/mm3 (142-424); Red Blood Count 4.50 M/mm3 (4.20-5.40); Red Cell Distribution Width-SD 44.1 fL; White Blood Count 6.6 K/mm3 (4.8-10.8)
[2025-05-17 10:15] LABS: Chloride 101 mmol/L (98-107); Sodium 134 mmol/L (136-145)
[2025-05-17 10:16] LABS: Potassium 4.1 mmoL/L (3.5-5.1)
[2025-05-17 10:18] LABS: Blood Urea Nitrogen 9 mg/dl (7-17); Creatinine Clearance Estimated 158 mL/min (50-200); Creatinine,Serum 0.60 mg/dl (0.52-1.04); Estimated Glomerular Filt Rate 113 ml/min (>60); GFR (African American) 137 ML/MIN (>60)
[2025-05-17 10:19] LABS: Anion Gap 9.1 mEq/L (5-15); Calcium 9.8 mg/dl (8.4-10.2); Carbon Dioxide 28 mmol/L (22.0-30.0); Glucose 101 mg/dl (74-100)
[2025-05-17 10:27] LABS: HCG Qualitative, Serum Negative (Negative)
[2025-05-17] MEDS: IOPAMIDOL-370 (76%);100ML BOTTLE 75 ML IV (10:36)
[2025-05-17 11:00] VITALS: BP 135/87; PULSE 91; O2SAT 100
[2025-05-17 11:09] LABS: Hepatitis C Ab Qual. W/ RFX NEGATIVE (Negative)
[2025-05-17] MEDS: HYDROMORPHONE 2MG/ML SYRINGE 0.5 MG IV (11:13)
[2025-05-17 11:35] VITALS: BP 129/88; PULSE 89; RESP 18; TEMP 37.2; O2SAT 96
== END 2025-05-17 11:38 | disposition home or self-care (01) ==
PROVIDERS: Emergency Provider Emergency Medicine; PCP Nurse Practitioner Family
DX: L03.211 Cellulitis of face (principal)
CPT/HCPCS: 70487; 80048; 84703; 85025; 86803; 87389; 96361; 96374; 96375; 99285; J1171; J2270; J2405; J7120; Q9967